=== PATIENT | female | born 1990 | race Caucasian/White ===

== ENCOUNTER 2022-11-20 13:39 | Emergency (ER) | payer MEDICAID ==
[2022-11-20] MEDS ORDERED: Acetaminophen 325 MG Tab PO ONE (14:06)
[2022-11-20 14:16] LABS: HEMATOCRIT 38.8 % (34.1-44.9); HEMOGLOBIN 13.4 gm/dl (11.2-15.7); MEAN CORPUSCULAR HEMOGLOBIN 27.9 pg (25.6-32.2); MEAN CORPUSCULAR HGB CONC 34.5 g/dl (32.2-35.5); MEAN CORPUSCULAR VOLUME 80.8 fl (79.4-94.8); MEAN PLATELET VOLUME 11.2 fl (9.4-12.3); PLATELET COUNT,PLT 242 K/mm3 (182-369); WHITE BLOOD CELL COUNT,WBC 6.47 K/mm3 (3.98-10.04)
[2022-11-20 14:27] LABS: ALANINE AMINOTRANSFERASE,ALT 14 U/L (14-59); ALBUMIN 3.9 g/dl (3.4-5.0); ALKALINE PHOSPHATASE 104 U/L (46-116); ANION GAP 14.4 (5-15); ASPARTATE AMNIOTRANSFERASE,AST 13 U/L (15-37); BILIRUBIN TOTAL 0.6 mg/dL (0.2-1.0); BLOOD UREA NITROGEN,BUN 10 mg/dL (7-18); BUN/CREATININE RATIO 11.1 (14-18); CALCIUM 9.1 mg/dL (8.5-10.1); CARBON DIOXIDE,CO2 21 mEq/L (21-32); CHLORIDE,CL 105 mEq/L (98-107); CREATININE 0.9 mg/dL (0.55-1.02); ESTIMATED GFR 88 mL/min (>60); GLUCOSE RANDOM 106 mg/dL (70-99); POTASSIUM,K 3.4 mEq/L (3.5-5.1); PROTEIN TOTAL,TP 7.9 g/dl (6.4-8.2); SODIUM,NA 137 mEq/L (136-145)
[2022-11-20 14:54] LABS: APPEARANCE,URINE SLT CLOUDY (Clear); COLOR,URINE YELLOW (Yellow); PH,URINE 5.5 (5.0-8.0)
[2022-11-20 14:55] LABS: BILIRUBIN,URINE NEGATIVE (Negative); GLUCOSE,URINE NEGATIVE (Negative); KETONES,URINE NEGATIVE (Negative); NITRITE,URINE POSITIVE (Negative); OCCULT BLOOD,URINE NEGATIVE (Negative); PROTEIN,URINE TRACE (Negative); UROBILINOGEN,URINE 0.2 (0.2-1.0)
[2022-11-20 14:56] LABS: BACTERIA,URINE MANY /hpf (FEW); LEUKOCYTE ESTERASE,URINE NEGATIVE (Negative); MUCUS,URINE MANY /hpf (FEW); RBC,URINE 0-5 /hpf (0-5)
[2022-11-20] MEDS ORDERED: Sulfamethoxazole/Trimethoprim 800-160 MG Tab PO ONE (16:22)
[2022-11-23 12:36] LABS: HYALINE CASTS,URINE 0-5 /lpf (0-5)
== END 2022-11-20 16:46 | disposition home or self-care (01) ==
LOC: JD.ED 13:39
DX: N39.0 Urinary tract infection, site not specified (principal); Z86.73 Personal history of transient ischemic attack (TIA), and cerebral infarction without residual deficits; Z86.16 Personal history of COVID-19
CPT/HCPCS: 36415; 80053; 81001; 82947; 85027; 99284; A9270

== ENCOUNTER 2023-09-29 04:46 | Emergency (ER) | payer MEDICARE, MEDICAID ==
[2023-09-29] MEDS: Iopamidol 755 Mg/ML 100 ML Bottle IVPUSH ONE (05:20)
[2023-09-29] MEDS: Sodium Chloride 0.9% 100 ML IV SCH (05:20)
[2023-09-29 05:28] LABS: INR 1.02; PROTHROMBIN TIME 10.9 SECONDS (9.7-12.0)
[2023-09-29 05:29] LABS: PTT,PARTIAL THROMBOPLSTIN TIME 28.4 SECONDS (21.7-31.4)
[2023-09-29 05:36] LABS: A/G RATIO 1.1 (1-2); ALANINE AMINOTRANSFERASE,ALT 18 U/L (14-59); ALBUMIN 3.8 g/dl (3.4-5.0); ALKALINE PHOSPHATASE 101 U/L (46-116); ASPARTATE AMNIOTRANSFERASE,AST 14 U/L (15-37); BILIRUBIN TOTAL 0.6 mg/dL (0.2-1.0); BLOOD UREA NITROGEN,BUN 11 mg/dL (7-18); BUN/CREATININE RATIO 12.2 (14-18); CALCIUM 8.9 mg/dL (8.5-10.1); CARBON DIOXIDE,CO2 28 mEq/L (21-32); CHLORIDE,CL 101 mEq/L (98-107); CREATININE 0.9 mg/dL (0.55-1.02); ESTIMATED GFR 88 mL/min (>60); GLUCOSE RANDOM 85 mg/dL (70-99); LIPASE 67 U/L (16-77); PROTEIN TOTAL,TP 7.4 g/dl (6.4-8.2); SODIUM,NA 137 mEq/L (136-145)
[2023-09-29 05:45] LABS: BASOPHILS PERCENT AUTO 0.2 % (0.0-1.0); EOSINOPHILS ABSOLUTE AUTO 0.2 K/mm3 (0.0-0.4); EOSINOPHILS PERCENT AUTO 1.7 % (0.0-6.0); HEMATOCRIT 38.2 % (37.0-47.0); HEMOGLOBIN 13.2 gm/dl (12.0-16.0); IMMATURE GRAN ABSOLUTE AUTO 0.04 K/mm3 (0.00-0.05); IMMATURE GRAN PERCENT AUTO 0.4 % (0.0-0.4); LYMPHOCYTES ABSOLUTE AUTO 2.3 K/mm3 (1.0-4.8); LYMPHOCYTES PERCENT AUTO 22.8 % (24.0-44.0); MEAN CORPUSCULAR HEMOGLOBIN 29.1 pg (28.0-32.0); MEAN CORPUSCULAR HGB CONC 34.6 g/dl (32.0-36.0); MEAN CORPUSCULAR VOLUME 84.1 fl (83.0-99.0); MEAN PLATELET VOLUME 10.6 fl (9.4-12.3); MONOCYTES ABSOLUTE AUTO 0.7 K/mm3 (0.0-0.8); MONOCYTES PERCENT AUTO 6.6 % (0.0-8.0); NEUTROPHILS ABSOLUTE AUTO 6.7 K/mm3 (1.8-7.7); NEUTROPHILS PERCENT AUTO 68.3 % (41.0-71.0); PLATELET COUNT,PLT 226 K/mm3 (150-400); RED BLOOD CELL COUNT 4.54 M/mm3 (4.10-5.30); WHITE BLOOD CELL COUNT,WBC 9.86 K/mm3 (3.9-11.3)
[2023-09-29 05:55] LABS: TROPONIN I HIGH SENSITIVITY < 4 pg/mL (<=51)
[2023-09-29] MEDS: Sodium Chloride 0.9% 500 ML IV SCH (06:01)
[2023-09-29] MEDS: Aspirin 325 MG Tab.EC PO ONE (06:03)
[2023-09-29] MEDS: Sodium Chloride 0.9% 10 ML Syringe FLUSH PRN (09:23)
[2023-09-29] MEDS: Iopamidol 612 MG/ML 30 ML SDV IVPUSH ONE (09:57)
[2023-09-29] MEDS: Sodium Chloride 0.9% 10 ML Syringe FLUSH ONE (09:57)
== END 2023-09-29 12:05 | disposition home or self-care (01) ==
LOC: JD.ED 04:46
DX: R53.1 Weakness (principal); M79.672 Pain in left foot; M79.89 Other specified soft tissue disorders; Z86.73 Personal history of transient ischemic attack (TIA), and cerebral infarction without residual deficits
CPT/HCPCS: 36415; 70450; 70450-26; 70496; 70496-26; 70498; 70498-26; 70551; 70551-26; 72133; 72133-26; 73630-26-LT; 73630-LT; 80053; 82947; 83690; 84484; 84703; 85025; 85610; 85730; 93005; 93010; 96360; 96361; 99284; 99285-25; A9270-GY; J3490; J7040; Q9967

== ENCOUNTER 2023-11-13 16:42 | Emergency (ER) | payer MEDICARE, MEDICAID ==
[2023-11-13] MEDS ORDERED: Misoprostol 200 MCG Tab VAG ONE ×2 (19:12→21:00)
[2023-11-13] MEDS: Misoprostol 200 MCG Tab VAG ONE (19:57)
[2023-11-13] MEDS: Acetaminophen/oxyCODONE 325-5 MG Tab PO ONE (20:18)
== END 2023-11-13 20:21 | disposition home or self-care (01) ==
LOC: JD.ED 16:42
DX: O03.4 Incomplete spontaneous abortion without complication (principal); Z3A.00 Weeks of gestation of pregnancy not specified; Z79.899 Other long term (current) drug therapy; Z79.82 Long term (current) use of aspirin
CPT/HCPCS: 36415; 76817; 84702; 86850; 86900; 86901; 99284; A9270